=== PATIENT | female | born 1930 | race Caucasian/White ===

== ENCOUNTER 2016-09-27 06:59 | Inpatient (IN) | payer MEDICARE, BC ==
[~2016-09-27] VITALS: Ht 154.9 cm; Wt 51.3 kg
--- NOTE | ~2016-09-27 | OR ---
PATIENT'S NAME: BELKIS DELACRUZ [facility] AGE: 86 Y [address] ROOM: [address] [address] LOCATION: [facility] [place] ADMIT DATE: 09/27/2016 OR/Procedure Report DISCHARGE DATE: FAMILY PHYSICIAN: Zaid Pérez MD ATTENDING PHYSICIAN: PANCHITO KAYE SURGEON: Ra Rice MD INTERNAL MEDICINE HOSPITALIST: Freedom Otero PA-C. DATE OF PROCEDURE: 09/28/2016 PREOPERATIVE DIAGNOSIS: Small bowel obstruction. POSTOPERATIVE DIAGNOSIS: Small bowel obstruction. PROCEDURE: Laparoscopic release of small-bowel obstruction with enterolysis. FINDINGS: There was very large dilated bowel with adhesions in the pelvis and right lower quadrant causing obstruction. No ischemia was present. ESTIMATED BLOOD LOSS: Less than 20 mL. COMPLICATIONS: None. INDICATIONS: The patient is an 86-year-old female who presented with signs and symptoms of small bowel obstruction. We discussed surgical intervention, the risks, benefits, and alternatives which included, but are not limited to, bleeding, infection, and ongoing obstruction as well as enterotomies and leak. She understood the risks and elected to proceed. DESCRIPTION OF PROCEDURE: The patient was taken to the operating room, placed supine, given IV sedation, subsequently intubated, and a Sterling catheter was inserted. Her abdomen was then prepped with ChloraPrep and sterilely draped. A small stab incision was created just beneath the left costal margin. A Veress needle was inserted. Pneumoperitoneum was induced. Following this, a 5-mm trocar was inserted in the left midabdomen followed by insertion of the camera. There was no injury from initial trocar placement. A Veress needle was removed. Two more trocars were positioned, a left upper quadrant and left lower quadrant trocar, and these were both inserted under direct visualization. The bowel was noted to be extremely dilated proximally. We were able to identify the terminal ileum and we rounded up bowel from distal- to-proximal. We identified an area where the bowel was not mobile. We were able to manipulate the large dilated loops of bowel in order to see this area. There were adhesions and these were in the right lower quadrant into the pelvis. We were slowly able to lyse these adhesions and retrieve this loop of bowel. There appeared to be a transition point in this area. The bowel itself was curved onto itself and this was also freed using scissors. Once PATIENT'S NAME: BELKIS DELACRUZ [facility] AGE: 86 Y [address] ROOM: [place] [address] LOCATION: [facility] [place] ADMIT DATE: 09/27/2016 OR/Procedure Report DISCHARGE DATE: FAMILY PHYSICIAN: Zaid Pérez MD ATTENDING PHYSICIAN: PANCHITO KAYE this bowel was freed, there was an area that had a slightly darkened appearance. Initially, there was concern for an enterotomy, we observed this area by pressure, there was never any change, no further leak. We then turned our attention to the rest of the bowel. There still were adhesions to the dilated bowel, although, it was in the pelvis, however this was clearly dilated and not obstructing this area, our transition point was very clear, and we were able to see proximal small bowel contents distally with good peristalsis. There was free fluid and some ascites in the pelvis and this was suctioned from the abdominal cavity. We once again turned back to the area that we initially had some concerns for an enterotomy. After examining this, this disappeared to be changes from her previous scarring and not a true enterotomy. Again, the area of transition appeared as though it dilated beyond this and there is good peristalsis of the bowel. The pneumoperitoneum was then released and the trocars were removed. The trocar sites appeared hemostatic. The skin edges were all approximated with 4-0 Monocryl suture. Steri-Strips and sterile dressings were placed. The patient was extubated and sent to recovery in good condition. MD JODY HANKS/mike /[id number] d: 09/29/16 0241 t: 10/11/16 1404, OPERATIVE SUMMARY
--- NOTE | ~2016-09-27 | DS ---
PATIENT'S NAME: BELKIS DELACRUZ [facility] AGE: 86 Y [address] ROOM: [place] [address] [place] [facility] [place]: 09/27/2016 Discharge Summary DISCHARGE DATE: 10/01/2016 FAMILY PHYSICIAN: Zaid Pérez MD ATTENDING PHYSICIAN: Elías Roca PRIMARY DIAGNOSES: 1. High grade small bowel obstruction. 2. Acute diarrhea. 3. Chronic disease, includes deep venous thrombosis, pulmonary embolism, paroxysmal atrial fibrillation, and essential hypertension. PRINCIPAL PROCEDURES: Principal procedures done for the patient include adhesiolysis by Dr. Rice. LABS ON ADMISSION: Lactic acid 1.3. Cardiac enzyme, troponin less than 0.040. On admission WBC was 9.1. H and H on admission was 16.0/48.2, prior to discharge it was 12.4/37.7. Platelet was stable throughout the hospital stay. On admission, creatinine was 1.0, prior to discharge was stable at 1.0. Sodium on admission was 141, was stable throughout the hospital stay. Potassium on admission was 3.6, prior to discharge it was 3.9. Chloride was 106, CO2 was 22, calcium was 9.0, BUN 18, glucose 116. INR prior to discharge was 1.3. UA: Leukocytes negative, nitrite negative, wbc rare, bacteria negative. Lipase 100, procalcitonin less than 0.05, TSH 3.280. Microbiology: None was indicated. RADIOLOGY: CT abdomen is reported as relatively high-grade small-bowel loops obstruction without mass, transition zone right lower abdomen, some residual air in the colon at this juncture. Chest x-ray: Heart, lungs, and mediastinum was stable and normal. For the hospital course and history of present illness, please take a look at the H and P, which was done by Dr. Roca. The patient was admitted to med- surgical unit, had a general surgery consult for high grade small bowel obstruction. For the first day, initially, the patient was managed conservatively; however, by the next day of the hospital stay without improvement in her symptoms, still with abdominal distention, she was taken in to the OR and then adhesiolysis was done. The procedure was well tolerated by the patient. The patient's Coumadin was held from hospital stay and postop heparin was started. One day postop, the patient was started on clear liquid PATIENT'S NAME: BELKIS DELACRUZ [facility] AGE: 86 Y [address] ROOM: [address] [place] [address] [place] [facility] [place]: 09/27/2016 Discharge Summary DISCHARGE DATE: 10/01/2016 FAMILY PHYSICIAN: Zaid Pérez MD ATTENDING PHYSICIAN: Elías Roca diet, which was well tolerated without nausea or vomiting or abdominal pain, and by the second day postop, diet was advanced to soft diet, which was tolerated by the patient. The patient ambulated well in the hallway, was restarted on all her p.o. pills by the first day of postop, including her Coumadin and the heparin was discontinued. On the day of discharge, she was in a stable clinical condition, tolerated the soft diet well and was okay for discharge by general surgery team and the patient was stable medically, and was also discharged to home. Night before the patient's discharge, she developed some diarrhea which was attributed to the laxatives, which she was getting. She did get a stool for C. diff done, results of which is pending at the time of dictation. MEDICATIONS ON DISCHARGE: Include: 1. Metamucil 1 dose every day p.r.n. 2. Synthroid 75 mcg p.o. daily before breakfast. 3. Cholecalciferol 1000 units p.o. every evening. 4. Coumadin 5 mg p.o. daily. 5. Halcion 0.125 mg p.o. q.h.s. 6. Tramadol and acetaminophen 1 tablet p.o. 3 times daily. 7. Norvasc 5 mg p.o. twice daily with meals. 8. Aspirin 81 mg p.o. daily. 9. Ascorbic acid 1 g p.o. q.h.s. 10. Vitamin B12 2500 mcg p.o. daily. DISCHARGE INSTRUCTIONS: The patient is to follow up with her regular family doctor in the next 2 to 3 days, who is to recheck her INR and the patient is follow up with Dr. Rice in the next 1 to 2 weeks. JHOAN PEDRAZA MD ODO/modl /[id number] d: 10/01/162238 t: 10/08/162052, DISCHARGE SUMMARY
--- NOTE | ~2016-09-27 | CON ---
PATIENT'S NAME: BELKIS DELACRUZ [facility] AGE: 86 Y [address] ROOM: [place] [address] LOCATION: [place] ADMIT DATE: 09/27/2016 Consultation DISCHARGE DATE: FAMILY PHYSICIAN: Zaid Pérez MD ATTENDING PHYSICIAN: PANCHITO KAYE DATE OF CONSULTATION: 09/27/2016 REFERRING PHYSICIAN: Ra Green MD GENERAL SURGERY CONSULTATION NOTE CHIEF COMPLAINT: Small bowel obstruction. HISTORY OF PRESENT ILLNESS: This is a pleasant 86-year-old female, who presented to [facility] Emergency Room this morning complaining of worsening generalized abdominal pain as well as distention and nausea. She has a past surgical history of appendectomy as well as a cholecystectomy. She states that yesterday morning she started to notice some generalized abdominal tenderness. She did eat a small amount of supper last night; however, she did get pain after eating. She then became more nauseated throughout the night and into this morning. She denies any episodes of emesis. She states that her last bowel movement was yesterday. She also states that the last time she passed flatus was yesterday as well. She denies any history of small-bowel obstructions in the past. She did have her appendix out within the last [address] Trejo, here at [facility]. She states that she notes some generalized tenderness over her entire abdomen. She denies any recent fevers or chills. The patient has a history of pulmonary emboli as well as paroxysmal atrial fibrillation and has been chronically on warfarin therapy. She states that last week she was therapeutic, however, today in the ER, her INR is 5.2. ALLERGIES: FROM PREVIOUS RECORDS THAT SHE HAS AN ALLERGY TO HYDROCODONE, FOSAMAX, VALIUM, AND VOLTAREN. SOCIAL HISTORY: The patient notes no history of tobacco abuse or alcohol abuse. HOME MEDICATIONS: See list. PAST MEDICAL HISTORY: PATIENT'S NAME: BELKIS DELACRUZ [facility] AGE: 86 Y [address] ROOM: [place] [address] LOCATION: [place] ADMIT DATE: 09/27/2016 Consultation DISCHARGE DATE: FAMILY PHYSICIAN: Zaid Pérez MD ATTENDING PHYSICIAN: PANCHITO KAYE 1. Coronary artery disease. 2. Hypertension. 3. CHF. 4. Pulmonary embolism. 5. Hyperlipidemia. 6. Hypothyroidism. 7. Depression and anxiety. 8. Chronic anticoagulation with Coumadin secondary to paroxysmal atrial fibrillation. PAST SURGICAL HISTORY: 1. Right hip surgery. 2. Knee surgery. 3. Cervical spine fusion. 4. Rotator cuff repair. 5. Appendectomy. 6. Cholecystectomy. REVIEW OF SYSTEMS: As noted in the HPI, otherwise, unremarkable. LABORATORY AND IMAGING DATA: Lactate 1.3. CMP; sodium 141, potassium 3.6, chloride 106, CO2 of 22, glucose 116, calcium 9, BUN 18, and creatinine 1. Total protein 7, albumin 3.9, total bilirubin 0.6, alkaline phosphatase 50, AST 22, and ALT 25. CBC; white blood cells 9.1, hemoglobin 16.0, hematocrit 48.2, and platelets 228,000. Procalcitonin is less than 0.05. UA was negative for nitrites, leukocyte esterase as well as protein and glucose. Chest x-ray shows a normal chest x- ray. Abdominal and pelvic CT scan shows that the small bowel mesentery are abnormal with high-grade small bowel obstruction that appears to be in the right lower abdomen and in the [id number] ileum. No masses are located, but there is a transition zone. Appendix and gallbladder are surgically absent. The pancreas, kidneys, and spleen are within normal limits. Liver appears normal. Uterus is present. IMPRESSION: High-grade small bowel obstruction without mass in the right lower abdomen. PHYSICAL EXAMINATION: GENERAL: She is alert and oriented x3. She is lying in the bed. She is nontoxic appearing. HEENT: Head; normocephalic and atraumatic. Extraocular movements intact. Pupils equal, round, and reactive to light. No scleral icterus present. Nares patent. NECK: Supple. Oral mucosa moist. PATIENT'S NAME: BELKIS DELACRUZ [facility] AGE: 86 Y [address] ROOM: [address] [place] [address] LOCATION: [place] ADMIT DATE: 09/27/2016 Consultation DISCHARGE DATE: FAMILY PHYSICIAN: Zaid Pérez MD ATTENDING PHYSICIAN: PANCHITO KAYE HEART: Distal cardiac sounds. Normal S1 and S2. Regular rate and rhythm. No murmurs appreciated. LUNGS: Clear to auscultation bilaterally. ABDOMEN: Mildly distended. Bowel sounds are present. Appropriately tender in the left upper quadrant as well as right lower quadrant. No guarding or rigidity present. GENITOURINARY: Deferred. SKIN: Warm. No suspicious lesions or rashes noted. EXTREMITIES: No edema, cyanosis, or clubbing noted. Moves all four extremities spontaneously. NEUROLOGIC: Cranial nerves 2 through 12 grossly intact. The patient is alert and oriented. ASSESSMENT AND PLAN: This is a pleasant, 86-year-old female, who presented to [facility] for worsening abdominal pain and nausea. 1. Small bowel obstruction. She has a bowel obstruction in the mid-to- distal ileum as noted on a CT scan. The patient is nontoxic appearing. We will treat conservatively at this present time. We will place an NG tube, as well as start her on maintenance fluids and make her n.p.o. The patient's last bowel movement was yesterday. Her last meal was last night. The patient has not had any emesis. We will obtain an abdominal KUB in the morning and follow with serial exams. 2. Paroxysmal atrial fibrillation, on chronic anticoagulation. The patient has been on chronic warfarin. Her current INR is 5.2. We will order a one time dose of 2 mg of vitamin K IV to reverse it in case of emergent surgery. We will continue to follow INR in the AM. SARAH MAYERS MD RESIDENT FOR RA GREEN MD AMP/modl /[id number] d: 09/27/16 1730 t: 10/11/16 1407, CONSULTATION REPORT
--- NOTE | ~2016-09-27 | ER ---
PATIENT'S NAME: [facility] AGE: 86 Y [address] ROOM: [place] [address] LOCATION: [facility] ADMIT DATE: 09/27/2016 ER/Outpatient Report DISCHARGE DATE: FAMILY PHYSICIAN: Zaid Pérez MD ATTENDING PHYSICIAN: PANCHITO KAYE Time of Arrival: 0659 hours. Time of Evaluation: 0710 hours. CHIEF COMPLAINT: Abdominal pain. HISTORY OF PRESENT ILLNESS: The patient is an 86-year-old female, who presents to the emergency department today with a chief complaint of abdominal pain. She reports this started earlier this morning about 3 o'clock in the morning. She is having some constipation, had the last bowel movement this morning. She does report it is improved with lying down. It has progressively worsened. Denies any fevers or chills. Does have some nausea. No vomiting. No diarrhea or constipation. She has tried some Metamucil and some stool softener without any relief. Denies any history of similar episodes in the past. PAST MEDICAL HISTORY: Hypertension, blood clots, pulmonary embolism, heart ablation, congestive heart failure, chronic hepatitis, hiatal hernia, dyslipidemia, hypothyroid, vitamin D deficiency, depression, coronary artery disease with previous RI, degenerative arthritis. PAST SURGICAL HISTORY: Rotator cuff, anterior cervical fusion, appendectomy, bilateral cataracts, cholecystectomy, left heart catheterization, right greater trochanter bursa surgery, hip surgery, and knee surgery. SOCIAL HISTORY: The patient denies any tobacco, alcohol, or illicit drug use. FAMILY HISTORY: Cancer, ALS, heart disease. ALLERGIES: TO FOSAMAX, OXYCONTIN, VALIUM, AND VOLTAREN. MEDICATIONS: Please see list. PATIENT'S NAME: [facility] AGE: 86 Y [address] ROOM: [place] [address] LOCATION: [facility] ADMIT DATE: 09/27/2016 ER/Outpatient Report DISCHARGE DATE: FAMILY PHYSICIAN: Zaid Pérez MD ATTENDING PHYSICIAN: PANCHITO KAYE PRIMARY CARE DOCTOR: Zaid Pérez MD. REVIEW OF SYSTEMS: All systems are reviewed by myself and are negative with the exception of those discussed in the HPI and past medical history. PHYSICAL EXAMINATION: VITAL SIGNS: Weight 50.9 kg, blood pressure 140/81, pulse 86, respiratory rate 22, temperature 97.8, oxygen saturation 97% on room air. GENERAL: The patient is an 86-year-old female, who appears her stated age, in moderate acute distress secondary to pain in her abdomen. HEENT: Head: Normocephalic, atraumatic. Pupils are equal, round, and reactive to light and accommodation. Extraocular motions are intact. Nares are patent bilaterally. TMs are clear. Oropharynx is clear. NECK: Supple. There is no nuchal rigidity. CARDIOVASCULAR: Regular rate and rhythm. No murmurs, rubs, or gallops. LUNGS: Clear to auscultation bilaterally. No wheezes, rales, or rhonchi. ABDOMEN: Abdomen is mildly distended with hyperactive bowel sounds. Diffuse tenderness to palpation with worse tenderness to palpation in the mid epigastric region. Voluntary guarding. MUSCULOSKELETAL: The patient moves all 4 extremities. Ambulates with a steady gait. SKIN: Warm and dry. There are no rashes or lesions noted. LABORATORY DATA AND X-RAYS: Urinalysis is negative. Lactate is normal. CBC is unremarkable. Lipase is normal. CK is normal. INR is 5.2. EKG shows a rate of 71, normal axis, normal interval. No ST elevation or ST depression. There are nonspecific T- wave inversions. CMP is unremarkable. LFTs are unremarkable. CK-MB and troponin are normal. BNP is 903. Procalcitonin is less than 0.05. CT scan of the abdomen and pelvis is obtained, and I have discussed results with the radiologist. It does show evidence of small-bowel obstruction, high grade, with transition point in the mid distal ileum. I did discuss that result with the radiologist. IMPRESSION: 1. High-grade small-bowel obstruction with transition point in the mid distal ileum. 2. Supratherapeutic INR, on chronic anticoagulation secondary to pulmonary embolism. 3. Initial visit. EMERGENCY DEPARTMENT COURSE: The patient was brought back to the examination room. Seen and evaluated by PATIENT'S NAME: BELKIS DELACRUZ [facility] AGE: 86 Y [address] ROOM: [id number] [place], [place] [address] LOCATION: [facility] ADMIT DATE: 09/27/2016 ER/Outpatient Report DISCHARGE DATE: FAMILY PHYSICIAN: Zaid Pérez MD ATTENDING PHYSICIAN: PANCHITO KAYE myself. An IV is established. Urinalysis and imaging are obtained as described above. The patient is given a liter of normal saline, 4 mg of Zofran IV, as well as 50 mcg of fentanyl IV. The results are obtained. I have contacted Dr. Rice at 0929 hours and discussed the case with him. He has also seen and evaluated the patient here in the emergency department. Please see his dictation. I have contacted Dr. Kaye with the Hospitalist Service. He was also seen and evaluated the patient here in the emergency department. The patient is given 50 mcg of fentanyl. I repeated with NG-tube placement. There are gastric contents, that are removed. A 2.5 mg of vitamin K was also given IV. The patient has remained n.p.o. I did discuss results of the laboratory analysis and imaging with the patient and her , who is at the bedside. Their questions are answered. They are without further questions. DISPOSITION: The patient is admitted under the care of Dr. Kaye in stable condition. DO BALTAZAR ROGEL/modl /[id number] d: 09/27/162215 t: 10/01/16 0632, OUTPATIENT REPORT
--- NOTE | ~2016-09-27 | HP ---
PATIENT'S NAME: BELKIS DELACRUZ [facility] AGE: 86 Y [address] ROOM: [address] [place], [place] [id number] [place] [facility] [place]: 09/27/2016 History & Physical DISCHARGE DATE: FAMILY PHYSICIAN: Zaid Pérez MD ATTENDING PHYSICIAN: PANCHITO KAYE CHIEF COMPLAINT: Nausea and vague diffuse abdominal pain. HISTORY OF PRESENT ILLNESS: This is an 86-year-old female who says that for the last few weeks, she has been experiencing vague diffuse periumbilical abdominal pain that she described as a crampy type of pain on and off, intensity anywhere between 3 to 6/10. The duration is about a few minutes and on and off. She says that she has also been feeling nauseous since this morning. She also has been feeling bloated. Last time, she passed flatus was 3 days ago. Last time, she had a bowel movement was yesterday morning, was normal. Last time, she ate was last night. She chronically takes Coumadin at home for a history of right lower extremity DVT in the past with a pulmonary embolism in the past and questionable history of paroxysmal atrial fibrillation, status post ablation in the past. Last time, she took Coumadin was yesterday morning 5 mg. She denies any history or any active bleeding of any kind. Because of the worsening periumbilical abdominal pain associated with nausea and bloating, the patient presented here to the emergency room for evaluation. REVIEW OF SYSTEMS: As mentioned in the history of present illness. All other systems reviewed and negative except those mentioned in the history of present illness. PAST MEDICAL HISTORY: 1. Hypertension. 2. History of pulmonary embolism on Coumadin, diagnosed many years ago. 3. 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 4. Hyperlipidemia. 5. Hypothyroidism. 6. According to the patient, she had a cardiac catheterization back in August 2016 at the [facility], it was unremarkable. 7. History of diastolic congestive heart failure. Last echo was performed in May 2015, showed EF of 55% to 60%. 8. Hiatal hernia. 9. Reported history of a hepatitis, but the patient does not remember all the details. She was told she has some kind of hepatitis in the past. 10. Status post cardiac ablation back in 2015. The patient does not know all the details. She does not know if it was due to atrial fibrillation PATIENT'S NAME: BELKIS DELACRUZ [facility] AGE: 86 Y [address] ROOM: [address] [place], [place] [address] [place] [facility] [place]: 09/27/2016 History & Physical DISCHARGE DATE: FAMILY PHYSICIAN: Zaid Pérez MD ATTENDING PHYSICIAN: PANCHITO KAYE or some other kind of arrhythmia. The patient says that she was never told she had atrial fibrillation, but she is also not sure. ALLERGIES: SHE IS ALLERGIC TO VOLTAREN, VALIUM, FOSAMAX, AND OXYCONTIN. HOME MEDICATIONS: 1. Coumadin 5 mg p.o. daily every morning, INR goal 2-3. 2. Aspirin 81 mg p.o. daily. 3. Vitamin C 1000 mg p.o. daily. 4. Vitamin D 1000 International Units p.o. daily. 5. Vitamin B12 2500 mcg p.o. daily. 6. Levothyroxine 75 mcg p.o. daily. 7. Triazolam 0.25 mg p.o., take half tablet every evening. 8. Tramadol 37.5 mg p.o. t.i.d. for pain. 9. Amlodipine 5 mg p.o. daily. 10. Besylate. Not sure what dosing, you need to be reconciled, but she takes a p.o. b.i.d. 11. Medication list currently is being reconciled. SOCIAL HISTORY: The patient denies any alcohol or cigarette or illegal drug use. FAMILY HISTORY: Both parents from advanced age. She could not remember from what cause. She denies any premature coronary artery disease in the family. PAST SURGICAL HISTORY: 1. Status post appendectomy. 2. Status post cholecystectomy. 3. Status post neck surgery. 4. Status post right knee surgery. 5. Status post right hip surgery. 6. Status post lower back surgery twice in the past. PHYSICAL EXAMINATION: VITAL SIGNS: At the time of my dictation, temperature was 97, heart rate 86, respiration rate 16, blood pressure 140/81, saturation 97% on room air. Pain 2/10 in the periumbilical area on palpation. GENERAL APPEARANCE: Alert and oriented x3, in no acute distress. HEENT: Pupils equally round and reactive to light. Extraocular muscles intact. Anicteric sclerae. Nasal turbinates are normal bilaterally. Moist oral mucosa. No oral thrush. NECK: No JVD. No cervical lymphadenopathy. No neck stiffness. CARDIOVASCULAR: Irregularly irregular rate and rhythm. Normal S1, S2. No PATIENT'S NAME: BELKIS DELACRUZ [facility] AGE: 86 Y [address] ROOM: [place] [id number] [place] [facility] [place]: 09/27/2016 History & Physical DISCHARGE DATE: FAMILY PHYSICIAN: Zaid Pérez MD ATTENDING PHYSICIAN: PANCHITO KAYE murmur. No rubs, no gallops. RESPIRATORY: Clear. Chest wall nontender to palpation. Abdomen: Soft, mildly distended, mildly tender to palpation in the periumbilical area, bowel sounds are hyperreactive, no palpable mass, no rebound tenderness, no abdominal rigidity, no findings to suggest peritonitis. No palpable mass. No ascites. EXTREMITIES: She has +1 bilateral pitting edema in bilateral anterior calves. This is chronic at baseline. Dorsalis pedis pulses +2 symmetrically bilaterally present. SKIN: No ulcer, no rash, no cyanosis. MUSCULOSKELETAL: No joint pain. No muscle pain. Range of motion intact. LABORATORY DATA: Lactic acid 1.3. Troponin less than 0.04. ProBNP 903. CPK 60. White blood cell 9.1, hemoglobin 16, hematocrit 48.2, MCV 89.6, platelet 228, glucose 116, BUN 18, creatinine 1.0. Sodium 141, potassium 3.6, chloride 106, CO2 22, calcium 9.0, total protein 7.0, albumin 3.9, AST 32, ALT 25, alkaline phosphatase 50, total bilirubin 0.6, anion gap 16.6, globulin 3.1, GFR 53. INR 5.2, PTT 45. Urinalysis negative for UTI. Lipase 100. Procalcitonin less than 0.05. CK-MB 2.2. IMAGING STUDY: 1. Chest x-ray on admission showed unremarkable. 2. CT of abdomen and pelvis with IV contrast showed relatively high-grade small-bowel obstruction without mass, transition zone in right lower abdomen. Some residual air in the colon at this juncture. 3. EKG on admission on September 27, 2016 at 9:00 a.m. showed atrial fibrillation with heart rate at 71 beats per minutes. I went to [facility] and complete the last EKG available was back in August 04, 2016, at that time, was sinus rhythm with sinus bradycardia heart rate 54. ASSESSMENT AND PLAN: 1. Regarding her high grade small bowel obstruction: General surgery already evaluated the patient, and for now, we will continue with the conservative care with NG tube suctioning and IV fluids for hydration and pain control with IV morphine p.r.n. Repeat KUB and lactic acid in the morning. NPO. Close monitoring. For the fluids, I will choose a D5 half-normal saline at 20 mEq of potassium chloride at a 60 mL/h as a maintenance rate. 2. Regarding her supratherapeutic INR: There was no finding of bleeding at the moment. Her atrial fibrillation probably is old or could be new. The patient does not remember that she has ever been told she had atrial fibrillation, but she did have a cardiac ablation back in 2015, probably it is for the atrial fibrillation, but the patient does not remember. PATIENT'S NAME: BELKIS DELACRUZ [facility] AGE: 86 Y [address] ROOM: [place] [id number] [place] [facility] [place]: 09/27/2016 History & Physical DISCHARGE DATE: FAMILY PHYSICIAN: Zaid Pérez MD ATTENDING PHYSICIAN: PANCHITO KAYE For this reason, I am going to get the medical records from the [facility] about the most recent cardiac catheterization back in August 2016 and also the cardiac ablation report back in 2015, and the most recent medical records. In any case, she is already supratherapeutic INR. Therefore, her risk for stroke is low at the moment. In anticipation that the patient might require surgery in case the bowel obstruction becomes complete bowel obstruction. Therefore, she will be getting IV vitamin K 2 mg right now and we will check INR in the morning. The goal is to keep INR 2-3 to prevent stroke risk given that she has atrial fibrillation on presentation. In case she will require surgery, we can always use the fresh frozen plasma or Kcentra to rapidly lower the INR to less than 1.5, if surgery is necessary. For now, I will not lower too much, I would like to keep the INR goal 2-3 to prevent a stroke risk. I will control her heart rate with IV Lopressor 2.5 mg q.6 hours with holding parameter. At home, she takes a beta- boaz p.o. but she is n.p.o. with NG tube, therefore with IV medication while she is npo with NG tube suctioning. 3. Regarding her history of hypothyroidism: We will check a TSH and modified dose of the levothyroxine, if necessary. For now, I use IV levothyroxine, cutting the dose by half of the p.o. dose. 4. History of diastolic heart failure. Last echo was done in 2014, in June 06. The EF was 55% to 60%. Currently, she is not in decompensation, well controlled. 5. Questionable history of hepatitis: I will be checking hepatitis B and C panel to clarify if she ever had hepatitis or not. Given the patient does not know all the details. 6. History of deep venous thrombosis in the right lower extremity and also pulmonary embolism in the past: INR is supratherapeutic. I will keep the INR between 2-3 for now as mentioned before. 7. Deep venous thrombosis prophylaxis: She will be on compression devices and INR is already supratherapeutic for now. Time spent on the day of admission 45 minutes including chart review, interviewing and examining the patient, addressing all the questions and concerns of the patient and the patient's had at the bedside. Also went over the plan of care in detail with the patient and the patient's at the bedside. PANCHITO KAYE MD CC/modl PATIENT'S NAME: BELKIS DELACRUZ [facility] AGE: 86 Y [address] ROOM: [place] [id number] [place] [facility] [place]: 09/27/2016 History & Physical DISCHARGE DATE: FAMILY PHYSICIAN: Zaid Pérez MD ATTENDING PHYSICIAN: PANCHITO KAYE /[id number] D: T: [id number] HISTORY & PHYSICAL
[~2016-09-27 06:59] MED LIST: ASPIRIN LO-DOSE81 MG PO; COUMADIN ** IA5 MG PO; COUMADIN **IA2.5 MG PO; DURAGESIC 25MC25 MCG TOP; EMERGEN-C 1,01000 MG PO; HALCION0.25 MG PO; LEVOTHROID(SYN75 MCG PO; METAMUCIL PACKE1 PKT PO; NEURONTIN250 MG/51 PO; NORCO 5-325 MG1 TAB PO; NORVASC5 MG PO; TRAMADOL-ACETA1 EACH PO; VITAMIN D1000 UNI1 PO; ZOCOR20 MG PO
[2016-09-27 08:14] LABS: BASOPHIL % 0.4 %; EOSINOPHIL # 0.1 K/uL (0.0-0.5); EOSINOPHIL % 0.8 %; HEMATOCRIT 48.2 % (30.0-46.0); IMMATURE GRANULOCYTE # 0.1 K/uL (0.0-0.3); IMMATURE GRANULOCYTE % 0.8 %; LYMPHOCYTE # 1.2 K/uL (0.8-4.0); LYMPHOCYTE % 12.8 %; MCH 29.7 pg (27.0-34.0); MCHC 33.2 gm/dL (32.0-36.5); MCV 89.6 fl (83.0-98.0); MONOCYTE # 0.5 K/uL (0.0-1.0); MONOCYTE % 5.5 %; MPV 10.4 fl (9.4-12.4); NEUTROPHIL # (ANC) 7.3 K/uL (1.8-7.8); NEUTROPHIL % 79.7 %; NRBC % 0 /100WBC (0-0.00); PLATELET COUNT 228 K/uL (150-450); RBC 5.38 M/uL (3.00-5.00); RDW-CV 14.7 % (11.9-14.6); WBC 9.1 K/uL (4.0-11.0)
[2016-09-27 08:21] LABS: ALBUMIN 3.9 gm/dL (3.5-5.0); ALK PHOS 50 IU/L (33-138); ALT 25 IU/L (12-78); ANION GAP 16.6 (10.0-19.0); AST 22 IU/L (10-40); BLOOD UREA NITROGEN 18 mg/dL (6-24); CHLORIDE 106 mMol/L (96-110); CO2 22 mMol/L (22-32); CPK 60 IU/L (21-215); ESTIMATED GFR (MDRD EQUATION) 53; POTASSIUM 3.6 mMol/L (3.7-5.1); SODIUM 141 mMol/L (135-145); TOTAL BILIRUBIN 0.6 mg/dL (0.0-1.5)
[2016-09-27 08:32] LABS: PROTIME 63.1 SECONDS (9.6-11.1); PTT 45 SECONDS (25-32)
[2016-09-27 08:33] LABS: INR - (THERAPEUTIC) 5.2 (0.9-1.1)
[2016-09-27 09:10] LABS: BILIRUBIN URINE NEGATIVE (NEGATIVE); BLOOD URINE 10 /UL (NEGATIVE); COLOR URINE COLORLESS (YELLOW); GLUCOSE URINE NEGATIVE (NEGATIVE); KETONE URINE NEGATIVE (NEGATIVE); LEUKOCYTES URINE NEGATIVE /UL (NEGATIVE); NITRITE URINE NEGATIVE (NEGATIVE); PROTEIN URINE NEGATIVE (NEGATIVE); TURBIDITY URINE CLEAR (CLEAR); UROBILINOGEN URINE NORMAL (NORMAL)
[2016-09-27 09:39] LABS: BACTERIA URINE NEGATIVE (NEGATIVE); EPITHELIAL URINE NEGATIVE #/HPF (NEGATIVE); RBC URINE RARE #/HPF (NEGATIVE); WBC URINE RARE #/HPF (NEGATIVE)
[2016-09-27] MEDS ORDERED: VITAMIN B-122500 MCG PO (11:57)
[2016-09-28 05:20] LABS: INR - (THERAPEUTIC) 1.2 (0.9-1.1); PROTIME 12.7 SECONDS (9.6-11.1)
[2016-09-28 05:24] LABS: CALCIUM 8.8 mg/dL (8.5-10.5); CREATININE 0.9 mg/dL (0.5-1.1)
[2016-09-28 15:59] LABS: INR - (THERAPEUTIC) 1.1 (0.9-1.1); PROTIME 11.5 SECONDS (9.6-11.1)
[2016-09-29 05:23] LABS: BASOPHIL % 0.1 %; HEMOGLOBIN 12.4 g/dL (10.0-15.0); IMMATURE GRANULOCYTE % 0.4 %; LYMPHOCYTE # 0.6 K/uL (0.8-4.0); LYMPHOCYTE % 7.7 %; MCH 30.4 pg (27.0-34.0); MCV 93.9 fl (83.0-98.0); MONOCYTE # 0.5 K/uL (0.0-1.0); MONOCYTE % 5.5 %; MPV 10.8 fl (9.4-12.4); NEUTROPHIL # (ANC) 7.1 K/uL (1.8-7.8); NEUTROPHIL % 86.3 %; NRBC % 0 /100WBC (0-0.00); RBC 4.08 M/uL (3.00-5.00); RDW-CV 14.8 % (11.9-14.6); WBC 8.2 K/uL (4.0-11.0)
[2016-09-29 05:24] LABS: HEMATOCRIT 38.3 % (30.0-46.0); MCHC 32.4 gm/dL (32.0-36.5); PLATELET COUNT 165 K/uL (150-450)
[2016-09-29 05:34] LABS: ANION GAP 13.2 (10.0-19.0); CALCIUM 8.2 mg/dL (8.5-10.5); CREATININE 0.9 mg/dL (0.5-1.1); POTASSIUM 4.2 mMol/L (3.7-5.1)
[2016-09-29 11:48] LABS: INR - (THERAPEUTIC) 1.1 (0.9-1.1); PROTIME 11.2 SECONDS (9.6-11.1)
[2016-09-30 02:38] LABS: ANION GAP 16.6 (10.0-19.0); BLOOD UREA NITROGEN 20 mg/dL (6-24); CALCIUM 8.1 mg/dL (8.5-10.5); CHLORIDE 107 mMol/L (96-110); CO2 22 mMol/L (22-32); CREATININE 0.8 mg/dL (0.5-1.1); ESTIMATED GFR (MDRD EQUATION) > 60; MAGNESIUM 1.9 mg/dL (1.3-2.6); POTASSIUM 3.6 mMol/L (3.7-5.1); SODIUM 142 mMol/L (135-145)
[2016-10-01 05:29] LABS: HEMATOCRIT 37.5 % (30.0-46.0); HEMOGLOBIN 12.4 g/dL (10.0-15.0)
[2016-10-01 11:31] LABS: INR - (THERAPEUTIC) 1.3 (0.9-1.1); PROTIME 13.4 SECONDS (9.6-11.1)
[2016-10-01 11:34] LABS: ANION GAP 10.9 (10.0-19.0); CALCIUM 8.6 mg/dL (8.5-10.5); POTASSIUM 3.9 mMol/L (3.7-5.1)
== END 2016-10-01 15:00 | disposition disaster alternative care site (69) | DRG 336 ==
LOC: GMED 06:59 → GMSU 09:48
PROVIDERS: Emergency Medicine; Hospitalist; Internal Medicine Gastroenterology; Nurse Anesthetist, Certified Registered; ADMIT Internal Medicine
PROC: 0DN84ZZ Release Small Intestine, Percutaneous Endoscopic Approach (ICD-10-PCS; principal; 2016-09-28)
DX: K56.69 Other intestinal obstruction (principal); I50.32 Chronic diastolic (congestive) heart failure; I48.0 Paroxysmal atrial fibrillation; K56.5 Intestinal adhesions [bands] with obstruction (postinfection); E03.9 Hypothyroidism, unspecified; K75.9 Inflammatory liver disease, unspecified; I10 Essential (primary) hypertension; Z79.01 Long term (current) use of anticoagulants; Z86.711 Personal history of pulmonary embolism; Z86.718 Personal history of other venous thrombosis and embolism
CPT/HCPCS: C9113; G0378; J0131; J0694; J1100; J1644; J1650; J2001; J2060; J2405; J3010; J3480; J7030; J7060; J7120; Q9967